=== PATIENT | female | born 1980 | race Caucasian/White ===

== ENCOUNTER 2025-02-16 11:28 | Outpatient (REF) | payer MEDICAID, SELFPAY ==
[2025-02-16 13:18] LABS: MANUAL DIFF FLAG NO
[2025-02-16 13:27] LABS: Hematocrit 42.9 % (37.0-47.0); Hemoglobin 14.4 g/dl (12.0-16.0); Imm Gran Abs Auto 0.01 X10*3/uL (0.00-0.03); Imm Gran Pct Auto 0.1 % (0.0-0.4); Lymphocytes Absolute Auto 2.0 X10*3/uL (1.2-4.9); Mean Corpuscular HGB Conc 33.6 g/dl (31.0-35.0); Mean Corpuscular Hemoglobin 27.6 pg (27.0-33.0); Mean Corpuscular Volume 82.3 fL (80.0-98.0); NRBC Abs Auto 0.000 X10*3/uL (0.0-0.012); NRBC Pct Auto 0.0 /100WBC (0.0-0.2); Platelet Count 280 X10*3/uL (160-400); Red Blood Count 5.21 X10*6/uL (4.20-5.50); White Blood Count 7.3 X10*3/uL (4.8-10.8)
[2025-02-16 13:50] LABS: Alanine Aminotransferase 11 U/L (0-31); Albumin Level 4.6 g/dL (3.5-5.0); Alkaline Phosphatase 59 U/L (39-117); Anion Gap 16 (12-20); Aspartate Amino Transferase 19 U/L (5-31); Blood Urea Nitrogen 20 mg/dL (9-16); Calcium 9.4 mg/dL (8.4-10.2); Carbon Dioxide 20 mmol/L (22-29); Chloride 107 mmol/L (96-108); Cholesterol 241 mg/dL (<200); Estimated Glomerular Filt Rate > 60; HDL Cholesterol 52 mg/dL (>40); Potassium 4.1 mmol/L (3.3-5.1); Sodium 139 mmol/L (135-145); Total Protein 7.6 g/dL (6.5-8.0); Triglycerides 143 mg/dL (<150)
[2025-02-16 14:59] LABS: HBS Num1 2.70 mIU/mL (0-7.99); HBc Num1 0.09 S/CO (0.00-0.79); HBsAGNum1 0.47 S/CO (0.00-0.99); HIV Num 1 0.04 S/CO (0.00-0.99); Hepatitis A Antibody IgM 0.21 Index (0-0.79); Hepatitis B Surface Antigen Negative (Negative); ~HepC Num1 0.14 S/CO (0.00-0.79); ~Hepatitis A Antibody IgM Nonreactive (Nonreactive); ~Hepatitis B Surface Antibody NONREACTIVE (Nonreactive); ~Hepatitis C Antibody Nonreactive (Nonreactive)
[2025-02-16 15:01] LABS: Syphilis Screen Nonreactive (Nonreactive)
[2025-02-16 16:00] LABS: Reflex LDLD? No
== END 2025-02-16 11:29 | disposition home or self-care (01) ==
LOC: HO.HHCL 11:28
PROVIDERS: PCP Internal Medicine; Visit Provider Internal Medicine
DX: Z11.59 Encounter for screening for other viral diseases (principal); Z11.4 Encounter for screening for human immunodeficiency virus [HIV]; J45.20 Mild intermittent asthma, uncomplicated; R03.0 Elevated blood-pressure reading, without diagnosis of hypertension; Z20.6 Contact with and (suspected) exposure to human immunodeficiency virus [HIV]; Z20.5 Contact with and (suspected) exposure to viral hepatitis
CPT/HCPCS: 36415; 80053; 80061; 84443; 85025; 86704; 86706; 86709; 86780; 86803; 87340; 87389